=== PATIENT | male | born 1960 | race Caucasian/White ===

== ENCOUNTER → 2016-05-19 | Outpatient (CLI) | payer OTHER ==
[~2016-05-19] MED LIST: ASPIRIN LO-DOSE81 MG PO; BAYER CHILD81 MG PO; CARDIZEM CD (T120 MG PO; IMDUR30 MG PO; LEVEMIR FL100 UNIT/1 SUB-Q; LIPITOR20 M1 PO; LOPRESSOR50 MG PO; MS CONTIN60 MG PO; NITROSTAT0.4 MG SL; NUCYNTA50 MG PO; RANEXA ER500 MG PO; ZOFRAN4 MG PO
== END | disposition disaster alternative care site (69) ==
LOC: GAMB 05:45
DX: R07.9 Chest pain, unspecified (principal); M79.602 Pain in left arm; R11.2 Nausea with vomiting, unspecified; Z79.899 Other long term (current) drug therapy; Z88.1 Allergy status to other antibiotic agents
CPT/HCPCS: A0425; A0427; J2405

== ENCOUNTER 2016-05-23 20:17 | Inpatient (IN) | payer OTHER ==
[~2016-05-23] VITALS: Ht 175.3 cm; Wt 108.3 kg
--- NOTE | ~2016-05-23 | DS ---
PATIENT'S NAME: CHAKA SANDOVAL [facility] AGE: 55 Y [address] ROOM: [place] [address] LOCATION: GPCU ADMIT DATE: 05/23/2016 Discharge Summary DISCHARGE DATE: 05/26/2016 FAMILY PHYSICIAN: Jerson Bruno MD ATTENDING PHYSICIAN: Dawood Raygoza DISCHARGE DIAGNOSES: 1. Chest pain secondary to Prinzmetal angina. 2. Nonsustained ventricular tachycardia. PAST MEDICAL HISTORY: 1. Prinzmetal angina causing chronic chest pain. 2. Diabetes type 2. 3. Opioid dependence. 4. Anxiety disorder. 5. Depression. 6. Multiple cardiac catheterizations in the past without intervention due to a finding consistent with Prinzmetal angina and a mid LAD bridge. DISCHARGE MEDICATIONS: 1. Morphine sulfate 60 mg p.o. t.i.d. 2. Nitroglycerin sublingual 0.4 mg every 5 minutes p.r.n. for chest pain. 3. Insulin Levemir 30 units subcutaneous every morning. 4. Tapentadol 50 mg p.o. t.i.d. p.r.n. for pain. 5. Cardizem CD 120 mg p.o. daily. 6. Zofran 4 mg every 6 hours p.r.n. for nausea and vomiting. 7. Lopressor 50 mg p.o. b.i.d. 8. Aspirin 81 mg p.o. daily. 9. Lipitor 20 mg p.o. daily. 10. Ranexa extended release 500 mg p.o. b.i.d. 11. Imdur extended release 90 mg p.o. daily. FOLLOWUP: The patient is instructed to follow with the primary member of congress, Dr. Haq on June 15, 2016; also with the primary care physician within 1 week. The patient is also instructed if the chest pain recurs, come back right away to the emergency room. INVESTIGATION DURING THE HOSPITALIZATION: Chest x-ray on admission showed normal chest x-ray. Transthoracic echo on May 24, 2016, showed normal left ventricular contractility. Normal left ventricular and right ventricular size and systolic function. The estimated left ventricular ejection fraction is 60% to 65%. Mild concentric left ventricular hypertrophy. Diastolic flow assessment reveals normal diastolic left ventricular function. No significant valvular PATIENT'S NAME: CHAKA SANDOVAL [facility] AGE: 55 Y [address] ROOM: G6309 [place], [place] [address] [facility] ADMIT DATE: 05/23/2016 Discharge Summary DISCHARGE DATE: 05/26/2016 FAMILY PHYSICIAN: Jerson Bruno MD ATTENDING PHYSICIAN: Dawood Raygoza. On May 25, 2016, the patient had a nuclear stress test and showed the overall quality of the study was good. Left ventricular cavity is noted to be normal on the stress and normal on the rest images. There is no evidence of abnormal lung activity. The right ventricle is not visualized and cannot be assessed. Impression is that the submaximal exercise nuclear stress test, the EKG portion of the exercise stress test is clinically negative for ischemia by diagnostic criteria. The patient achieved 8.5 METS. The patient only reached 73% of the maximal heart rate. Myocardial perfusion imaging is essentially normal. Overall, left ventricular systolic function was normal without regional wall motion abnormalities. The calculated left ventricular ejection fraction is 70%. LABORATORY DATA: Show CPK, a total of 6 sets, all within normal limits. Troponin 6 sets all within normal limits as well. CK-MB also within normal limits, all 6 sets. On admission, white blood cell 9.7, hemoglobin 15.7, hematocrit 45.8, MCV 79.5, platelets 267. Glucose 224, BUN 24, creatinine 1.0, sodium 135, potassium 3.5, was replaced, and 2 days after on May 25, 2016, was 4.0. Chloride, on admission, 102; CO2 of 22; calcium 8.6. Total protein 7.6, albumin 3.6. AST 9, ALT 16, alkaline phosphatase 67, total bilirubin 0.5. Magnesium 2.1. Anion gap 14.5. GFR more than 60. INR 1.0, PTT 25. EKG on admission on May 23, 2016, showed sinus rhythm, heart rate of 85, normal VT, normal QRS, normal QTc duration and interval without a finding to suggest acute ischemia. Repeat EKG on May 26, 2016, on discharge still showed sinus rhythm without any acute ischemic changes. Heart rate 63, VT, QRS, and QTc all within normal limits. CONSULTANTS INVOLVED IN CARE: 1. Cardiology, Dr. Haq. 2. Hospitalist team. ADMISSION HISTORY AND HISTORY COURSE: For the complete history and physical, refer to history and physical dictated on the day of admission by Dr. Davenport. In summary, this is a 55-year-old male with recurrent chest pain secondary to Prinzmetal angina and multiple cardiac catheterizations in the past without any interventions given that his chest pain is secondary to Prinzmetal angina. At this time, the patient came back here again with recurrent substernal chest pain without much relief after taking nitroglycerin sublingual or nitroglycerin drip in the emergency room. The patient was admitted for the diagnoses mentioned in the discharge diagnoses. 1. Regarding his chest pain secondary to Prinzmetal angina: The patient is PATIENT'S NAME: CHAKA SANDOVAL [facility] AGE: 55 Y [address] ROOM: [place] [address] LOCATION: [facility] ADMIT DATE: 05/23/2016 Discharge Summary DISCHARGE DATE: 05/26/2016 FAMILY PHYSICIAN: Jerson Bruno MD ATTENDING PHYSICIAN: Dawood Raygoza well-known to the primary member of congress, Dr. Haq, who has had several cardiac catheterizations done in the past and no interventions were performed given that his recurrent chest pain was secondary to Prinzmetal angina. The patient underwent cardiac enzyme cycling, a total of 6 sets were performed, and all CPK and CK-MB and troponin were all within normal limits. The patient also had a transthoracic echo and also a nuclear stress test also without significant abnormality that did not require repeat cardiac catheterization. Refer to the investigation during the hospitalization section above for details. The patient was followed closely by Cardiology, and the patient's chest pain actually went away during this admission. The patient was started on a new medication which includes Ranexa and Imdur, both extended release. The patient remained chest pain free, therefore, did not require any further testing given that the echo and also the nuclear stress test were unremarkable and did not require further cardiac catheterization evaluation. The patient was cleared by Cardiology to be discharged home on the day of discharge. The patient will be going home with medications mentioned in the discharge medication section. On the day of discharge, the patient had good spirits, vital signs within normal limits, chest pain free, and did not complain of any symptoms. 2. The patient also had a few beats of nonsustained ventricular tachycardia that patient was totally asymptomatic, and the patient was on Lopressor and did not have any more recurrence of the nonsustained ventricular tachycardia. 3. For patient's diabetes type 2: The patient was continued with the diabetic medication regimen and was under good control. The patient will be discharged home with the same diabetic medication regimen. 4. Regarding his hypertension: Was also well controlled and will be continued on the same medication that he was taking before. Time spent on the day of discharge, 25 minutes including counseling, and addressing all the questions and concerns that the patient had and then going over the followup plan with the patient and the nurses. MD ROBERTO TINOCO/shaggy /[id number] d: 06/07/16 2204 t: 06/28/16 1046, DISCHARGE SUMMARY
--- NOTE | ~2016-05-23 | ECHO ---
Transthoracic Echocardiography Report (TTE) Demographics Patient Name CHAKA SANDOVAL Date of Study 05/24/2016 Patient Number [id number] Visit Number [id number] Date of 1960 Room Number G6309 Gender Male Number Age 55 year(s) Referring Kiana Arthur MD Automatic Silk Screen Printer Diomedes Lovell RVT, Physician Issac Arrington Physician Interpreting Renato Pino Shield Cleaner Physician MD Supervising Ordering Carlene Arrington APRN, MD/MLP Physician Nurse Stress Guest Relations Coordinator Conclusions Contractility Score Summary Normal Left Ventricular contractility was noted. Summary Normal LV/RV size and systolic function. The estimated left ventricular ejection fraction is 60-65%. Mild concentric left ventricular hypertrophy. Diastolic flow assessment reveals normal diastolic LV function . No significant valvular abnormalities. Procedure Type of Study TTE procedure:2D Echocardiogram, M-Mode, Doppler , Color Doppler. Procedure Date Date: 05/24/2016 Start: 12:52 PM Study Location: Inpatient Portable Technical Quality: Adequate visualization Indications:Ventricular tachycardia and Chest pain. Appropriate Use Criteria: 9 Patient Status: Routine HR: 68 bpm BP: 137/80 mmHg Allergies - Other:(sulfa, ceftin). M-Mode/2D Measurements LV Diastolic Dimension: 4.27 cm LV Systolic Dimension: 2.75 cm LV Septum Diastolic: 1.28 cm LV PW Diastolic: 1.16 cm AO Root Dimension: 3.3 cm Cardiac Output: 3.99 l/min AV Cusp Separation: 1.7 cm RV Diastolic Dimension: 2.9 cm LA volume: 43 ml LVOT: 2 cm RV Base: 2.86 cm LVOT VTI: 18.7 cm RV Mid: 2.36 cm LV Stroke volume: 58.72 ml TAPSE: 2.52 cm TDI-S': 14.6 cm/s Doppler Measurements AV Peak Velocity: 1.23 m/s MV Peak E-Wave: 0.74 m/s AV Peak Gradient: 6.05 mmHg MV Peak A-Wave: 0.57 m/s AV Mean Gradient: 3 mmHg MV E/A Ratio: 1.28 LVOT Peak Velocity: 0.94 m/s MV P1/2t: 79 msec PV Peak Velocity: 0.82 m/s E' Septal Velocity: 0.06 m/s PV Peak Gradient: 2.69 mmHg E' Lateral Velocity: 0.08 m/s A' Septal Velocity: 0.13 m/s A' Lateral Velocity: 0.13 m/s Findings Left Ventricle The left ventricle is normal in size . Mild concentric left ventricular hypertrophy. Diastolic flow assessment reveals normal diastolic LV function . Right Ventricle Normal right ventricle structure and function. Left Atrium Normal left atrial size. Right Atrium Normal right atrial size. IVC measures 1.89 cm with inspiratory collapse. Mitral Valve Mild mitral annular calcification. Aortic Valve The aortic valve is mildly sclerotic. Tricuspid Valve Normal tricuspid valve structure and function. Trivial tricuspid regurgitation by color Doppler. Pulmonic Valve The pulmonic valve is not well visualized. Pericardial Effusion No evidence of pericardial effusion. Miscellaneous Visualized portions of the aortic root and ascending aorta appear normal in size. Pleural Effusion No evidence of pleural effusion. Contractility Score LV regional wall motion:(0-Non visualized 1-Normal 2-Hypokinesis 3-Akinesis 4-Dyskinesis 5-Aneurysm) Signature dtt: ALIE CHRISTOPHER dtd: 05/24/16 1252 Physician Self Edit
--- NOTE | ~2016-05-23 | ESTC ---
Cardiac Perfusion Imaging Demographics Patient Name LORI Ruby Gender Male Patient Number [id number] Race Visit Number [id number] [place] [id number] Room Number G6309 Accession Number [id number] Height 69 inches Date of 1960 Weight 236 pounds Interpreting Renato Pino Date of study 05/25/2016 Physician Supervising /DELMI COBOS Technologist Roxana Alonso Ordering Physician Carlene Arrington Stress Sylwia Sexton APRN appliance repair technician [facility] Stress ECG Reading Carlene Alejandra APRN Nurse Hazel Cheek RN Physician The procedure was explained in detail to the patient. Risks, complications and alternative treatments were reviewed. Written consent was obtained. Medications Reviewed with Patient prior to Procedure. Procedure Procedure Type: Nuclear Stress Test:Exercise, Cardiolite Stress Test Procedure Start time: 05/25/2016 07:15 Conclusions Summary Perfusion Images: The overall quality of the study is good. Left ventricular cavity is noted to be normal on the stress and normal on the rest images. There is no evidence of abnormal lung activity. The right ventricle is not visualized an cannot be assessed. Impression Submaximal exercise nuclear stress test. ECG portion of exercise stress test is clinically negative for ischemia by diagnostic criteria. Acheived 8.5 METS Patient only reached 73% of MPHR. Myocardial perfusion imaging is essentially normal. Overall left ventricular systolic function was normal without regional wall motion abnormalities. Calculated LVEF is 70% and TID ratio is 1.08. There are no previous studies for comparison. Stress Protocols Resting ECG Sinus rhythm Pre-stress physical exam: Patient assessed by Diamond ISAAC prior to testing. Peak HR:122 bpm HR response: Appropriate Peak BP:154/90 mmHg BP response: Appropriate Predicted HR: 166 bpm HR/BP product:82657 % of predicted HR: 73 Reason for termination:Chest pain ECG Findings No ECG changes suggestive of ischemia. Arrhythmias No rhythm abnormality. Symptoms Chest pain. - Familiar to previous chest pains. Complications Procedure complication: None. Stress Interpretation Performed Bustos Treadmill through 3 stages, walking for a total of 7.5 minutes. Test ended due to chest pain after 1 minute of walking after nuclear injection. Appropriate hemodynamic response to exercise. No significant ST-T wave changes with exercise. EKG portion is negative for ischemia by diagnostic criteria. SUBMAXIMAL STRESS TEST, PT REACHED ONLY 73% OF MPHR. Imaging Results Applied corrections - Motion correction applied High risk findings Summed scores - Summed stress score: 3 - Summed rest score: 1 - Summed difference score: 2 Stress ejection Ejection fraction:70 % EDV :90 ml ESV :27 ml Stroke volume :63 ml LV mass :121 gr Imaging Protocols Rest Stress Isotope:Tc99m Sestamibi IV Isotope: Tc99m Sestamibi IV Isotope dose:14.1 mCi Isotope dose:43.8 mCi Date:05/25/2016 07:45 Date:05/25/2016 10:27 Technique: SPECT Technique: Gated Supine SPECT Supine IV remains in place after procedure. Scan Time:15-30 minutes post injection Medical History Admission Data Admission date: 05/23/2016 Admission Time: 22:35 Hospital Status: Inpatient. Signatures dtt: ALIE CHRISTOPHER dtd: 05/25/16 0715 Physician Self Edit
--- NOTE | ~2016-05-23 | CON ---
PATIENT'S NAME: CHAKA SANDOVAL [facility] AGE: 55 Y [address] ROOM: [place] [address] LOCATION: GPCU ADMIT DATE: 05/23/2016 Consultation DISCHARGE DATE: FAMILY PHYSICIAN: JENN KENNY MD ATTENDING PHYSICIAN: SADAF CHAVEZ V DATE OF CONSULTATION: 05/24/2016 REFERRING PHYSICIAN: ODETTE CHRISTOPHER MD REASON FOR CARDIOLOGY CONSULT: Chest pain. HISTORY OF PRESENT ILLNESS: This is a 55-year-old male, familiar to [facility] and was last seen by us on 04/19/2016. He presents to this admission with chest pain, which is very familiar to him in quality and location. He has a well known documented history of Prinzmetal angina as well as LAD bridge. He presents to this hospitalization with a similar chest pain as well as nausea and vomiting and dizziness. Of note of difference with this admission is a new onset of nonsustained ventricular tachycardia while he was in the emergency department. He did self convert himself and had some complaints of palpitations during. He had no complaints of presyncope or worsening chest pain during. He also has no other changes in his health history or new complaints at the time of this consult. He is resting comfortably, but states that his chest pain is still present even with IV nitroglycerin. PAST MEDICAL HISTORY: Unchanged from dictation on 04/19/2016. PAST SURGICAL HISTORY: Unchanged from dictation on 04/19/2016. FAMILY HISTORY: Unchanged from dictation on 04/19/2016. SOCIAL HISTORY: Unchanged from dictation on 04/19/2016. CURRENT MEDICATIONS: 1. Cardizem CD 120 mg p.o. daily. 2. Lipitor 20 mg p.o. daily. 3. Lopressor 50 mg p.o. twice daily. 4. MS Contin 60 mg p.o. 3 times daily. 5. NovoLog subcu on a moderate sliding scale per a.c. and at bedtime Accu- Cheks. PATIENT'S NAME: CHAKA SANDOVAL [facility] AGE: 55 Y [address] ROOM: [place] [address] LOCATION: GPCU ADMIT DATE: 05/23/2016 Consultation DISCHARGE DATE: FAMILY PHYSICIAN: JENN KENNY MD ATTENDING PHYSICIAN: SADAF CHAVEZ V 6. Aspirin 325 mg p.o. daily. MEDICATION ALLERGIES: 1. Cephalosporins causing hives. 2. Sulfa causing hives. REVIEW OF SYSTEMS: Pertinent positive review of systems noted in the HPI. All other review of systems evaluated and negative. DIAGNOSTICS: CMS evaluation shows sodium of 135, potassium 3.5, BUN of 24, creatinine 1.0, glucose of 224, and magnesium of 2.1. Cardiac enzyme trend so far shows a CPK of 47, then 49, then 42. CK-MB of less than 0.5 x3 values and troponin I of less than 0.04 x3 values. PHYSICAL EXAMINATION: VITAL SIGNS: Temperature 97.8, pulse 67, respirations 14, blood pressure 126/77, O2 saturation 97% on room air. The patient weighs 107.1 kg. SKIN: [place], warm, and dry. EYES: Sclerae are clear. No xanthelasmas. ENT: Oral mucosa is pink and moist. No jugular venous distention. No carotid bruits. CHEST: Respirations are even and unlabored. LUNGS: Clear to auscultation. HEART: Regular rate and rhythm. Normal S1, S2. No murmurs, rubs, or gallops. ABDOMEN: Soft, nontender. MUSCULOSKELETAL: Gait is normal. EXTREMITIES: Peripheral pulses palpable. No clubbing, cyanosis, or edema. PSYCH: Alert and oriented. Mood and affect are appropriate. IMPRESSION AND PLAN: Per Dr. Odette Christopher: 1. Left anterior chest pain. 2. Nonsustained ventricular tachycardia. 3. History of Prinzmetal angina and LAD bridging. 4. Hypertension. 5. Hyperlipidemia. 6. Diabetes mellitus. The patient had a stress test on 04/10, which showed no ischemia and left ventricular ejection fraction of 75%. Dr. Odette Christopher reviewed his previous angiography, which showed severe mid LAD spasm. Did show some responsiveness with nitroglycerin on angio, so we will plan to start him on Imdur 90 mg p.o. daily with the first dose being off the nitroglycerin drip is PATIENT'S NAME: CHAKA SANDOVAL [facility] AGE: 55 Y [address] ROOM: [address] [address] [facility] AD[facility] DATE: 05/23/2016 Consultation DISCHARGE DATE: FAMILY PHYSICIAN: JENN KENNY MD ATTENDING PHYSICIAN: SADAF CHAVEZ. We will change his aspirin to an 81 mg enteric-coated dose. Due to his NSVT, we will continue to repeat echocardiogram to fully evaluate ejection fraction as well as look for wall motion valvular abnormalities. We will also proceed with a treadmill nuclear stress test to fully evaluate myocardial perfusion imaging. We will continue to monitor, evaluate, and treat as appropriate. Thank you for this consult. Thank for allowing [facility] to interact in the care of this patient. BROOKLYN SHIELDS APRN FOR MD PADMAJA ALCALA/shaggy /[id number] d: 05/24/16 2317 t: 05/30/16 1734, CONSULTATION REPORT
--- NOTE | ~2016-05-23 | ER ---
PATIENT'S NAME: CHAKA SANDOVAL [facility] AGE: 55 Y [address] ROOM: [address] [address] [facility] ADMIT DATE: 05/23/2016 ER/Outpatient Report DISCHARGE DATE: FAMILY PHYSICIAN: PHYSICIAN, UNKNOWN ATTENDING PHYSICIAN: SADAF CHAVEZ V Time of Arrival: Admission date and time documented on the medical record. Time of Evaluation: I saw the patient at 2030 hours. CHIEF COMPLAINT: Left anterior chest pain and pressure. HISTORY OF PRESENT ILLNESS: This patient is a 55-year-old male, who comes in with left anterior chest pain and pressure. Brought in by paramedics via ambulance for evaluation. The patient states that the pain started about 2 hours prior to admission to the emergency department. He was sitting, watching TV when it started. He has had nausea with 2 episodes of vomiting. He has generalized weakness. He states that he got diaphoretic, although he is not diaphoretic on arrival here to the emergency department. Also states that he was short of breath. The patient does have a long history of chest pain; has been in the emergency department multiple times. Has a history of nonobstructive coronary artery disease, Prinzmetal angina, and mid left anterior descending bridge. The patient usually comes in, gets nitroglycerin and resolves his pain. The last time he was here, he got up to about 30 mcg of nitroglycerin before his pain went away. He has been up into 50, 70 range, even up into 100 mcg of nitroglycerin before his pain goes away. The patient has had multiple cardiac catheterizations. Does have insulin-dependent diabetes mellitus type 2 along with hypertension and dyslipidemia. No recent cold, coughs, flus, fever, chills, or sweats. No fall or trauma. No syncope or near syncope. No headache or eyes, ears, nose, throat, neck, or spine pain. No abdominal pain. No diarrhea. No urinary symptoms. No joint or muscle swelling, redness, or pain. No skin eruptions or rash. No history of neuro changes or psych issues. HOME MEDICATIONS: See attached medication list. ALLERGIES: SULFA AND CEFTIN. SOCIAL HISTORY: Nonsmoker. Nondrinker. SIGNIFICANT PAST MEDICAL HISTORY: PATIENT'S NAME: CHAKA SANDOVAL [facility] AGE: 55 Y [address] ROOM: [id number] [place], [place] [address] LOCATION: [facility]U ADMIT DATE: 05/23/2016 ER/Outpatient Report DISCHARGE DATE: FAMILY PHYSICIAN: PHYSICIAN, UNKNOWN ATTENDING PHYSICIAN: SADAF CHAVEZ V Atherosclerotic ischemic heart disease with nonobstructive coronary artery disease, Prinzmetal angina, mid left anterior descending coronary artery bridge, insulin-dependent diabetes mellitus type 2, hypertension, and dyslipidemia. OPERATIONS: Appendectomy, cardiac catheterizations, cervical neck fusion, and septoplasty. REVIEW OF SYSTEMS: All systems reviewed by me are negative with the exception of those discussed in the history of present illness. PHYSICAL EXAMINATION: VITAL SIGNS: Temperature 98, pulse 80 and regular, respirations 16, blood pressure 174/100, and O2 saturation on room air was 99%. Robel Coma Scale was 15. HEAD: Normocephalic. EYES: Extraocular muscles intact. PERRL. EARS, NOSE, AND THROAT: Clear. Mucous membranes moist. NECK: No nuchal rigidity. No thyromegaly or cervical adenopathy. No carotid bruits. SPINE: Negative. LUNGS: Clear. Good air flow. No rales, rhonchi, or wheezes. HEART: Regular. Pulses palpable. No chest wall or ribcage pain to palpation. ABDOMEN: Soft, nondistended, nontender. Good bowel tones. No organomegaly or abnormal mass palpable. EXTREMITIES: No peripheral edema, cyanosis, or deformity. NEUROVASCULAR: Intact. SKIN: Clear. No skin eruptions or rash. LABORATORY DATA AND X-RAYS: EKG showed sinus rhythm. No acute ST elevation, ischemic change, or arrhythmia. Chest x-ray showed no acute infiltrate or changes. We will review x-ray with the radiologist. Laboratory: CMS was normal except for a slightly low potassium of 3.5 and elevated glucose 224. Magnesium was 2.1. CPK was 47. [id number]-[id number] cardiac enzymes were normal with a CK-MB of less than 0.5 and a troponin of less than 0.04. White count was 9700, 72 segs, 22 lymphs, 5 monos, 1 eo, 1 baso; hemoglobin was 15.7; hematocrit 45.8; platelet count was 267,000. PTT was 25, pro-time was 10.7, INR 1.0. EMERGENCY DEPARTMENT COURSE: Did start the patient on IV nitroglycerin ip. Got him up to 50 mcg. Still having some chest pain. Did give him Ativan 1 mg IV in the emergency room. The patient had an episode where he went into V-tach. Spontaneously converted PATIENT'S NAME: CHAKA SANDOVAL [facility] AGE: 55 Y [address] ROOM: [place] [address] [facility] ADMIT DATE: 05/23/2016 ER/Outpatient Report DISCHARGE DATE: FAMILY PHYSICIAN: PHYSICIAN, UNKNOWN ATTENDING PHYSICIAN: SADAF CHAVEZ V to a sinus rhythm. We did give him 150 mg of amiodarone IV here in the emergency department. Did discuss the patient with Dr. Chavez, hospitalist. IMPRESSION: 1. Left anterior chest pain and pressure. The patient has a history of nonobstructive coronary artery disease, Prinzmetal angina, and does have a mid anterior left anterior descending coronary artery bridge. The patient also went into an arrhythmia, ventricular tachycardia for a brief period of time with spontaneous conversion. Did cover the patient with amiodarone 150 mg IV. The patient is on nitroglycerin drip and did get Ativan. 2. Insulin-dependent diabetes mellitus type 2. 3. Hypertension. 4. Dyslipidemia. PLAN: The patient will be admitted to PCU telemetry for further evaluation and treatment. The patient will be under the care of Dr. Chavez, hospitalist, on admission. Discussion ensued with the patient concerning my findings and recommendation. He understands. MD JOSE RAFAEL MORTON/modl /[id number] d: 05/24/16 0550 t: 05/26/16 181, OUTPATIENT REPORT
--- NOTE | ~2016-05-23 | HP ---
PATIENT'S NAME: CHAKA SANDOVAL [facility] AGE: 55 Y [address] ROOM: [place] [id number] LOCATION: [facility] ADMIT DATE: 05/23/2016 History & Physical DISCHARGE DATE: FAMILY PHYSICIAN: JENN KENNY MD ATTENDING PHYSICIAN: SADAF CHAVEZ V DATE OF SERVICE: CHIEF COMPLAINT: Chest pain. 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 The patient presented to the ER today with complaints of 10/10 substernal chest pressure which started suddenly. It has not been relieved with any amount of nitroglycerin that he took at home or a nitroglycerin drip which was placed in the ER. When questioned about his use of MS Contin, he reports that he was not able to keep down his regular dose of 60 mg MS Contin on two separate occasions today. He thinks that he is going to opioid withdrawal. At this point, the only thing he wants his morphine. He denies any shortness of breath, but does admit to several episodes of nausea and vomiting. REVIEW OF SYSTEMS: All systems have been reviewed and negative aside for pertinent positives as mentioned above. PAST MEDICAL HISTORY: 1. Prinzmetal's angina, chronic chest pain, myocardial bridging, cardiac catheterizations x9 with nonobstructive diffuse coronary artery disease. 2. Insulin-dependent diabetes. 3. Significant opioid dependency. 4. Multiple social stressors. 5. Anxiety and depression. SOCIAL HISTORY: The patient denies having ever smoked and denies any other active toxic habits. FAMILY HISTORY: PATIENT'S NAME: CHAKA SANDOVAL [facility] AGE: 55 Y [address] ROOM: [place] [id number] LOCATION: [facility] ADMIT DATE: 05/23/2016 History & Physical DISCHARGE DATE: FAMILY PHYSICIAN: JENN KENNY MD ATTENDING PHYSICIAN: SADAF CHAVEZ V Reviewed and is noncontributory due to known underlying etiology for his presentation. CURRENT MEDICATIONS: 1. Aspirin. 2. Diltiazem. 3. Detemir 30. 4. Metoprolol 50, which the patient did not know he was supposed to be taken. 5. MS Contin 60 mg three times a day. 6. Nitroglycerin as needed. 7. Nucynta 50 mg three times a day as needed. PHYSICAL EXAMINATION: VITAL SIGNS: His heart rate is 100 to 110, blood pressure 130s over 60s, saturating 96% on room air, afebrile, respirations are 16. GENERAL: Appears as a middle-aged male, groaning in bed, but appears quite comfortable once distracted from his complaints. NEUROLOGICAL: Nonfocal. EYES: Reveals pre-existing left eye esodeviation. ENT: Reveals no stridor. LYMPHATIC: Shows no cervical lymphadenopathy. ENDOCRINE: Shows no thyromegaly. LUNGS: Clear to auscultation. HEART: Rate is slightly tachycardic and regular with no appreciable murmurs, gallops, or rubs. There is no jugular venous distention or lower extremity edema. GI: Abdomen soft and nontender. : No costovertebral angle tenderness. VASCULAR: 2+ pedal pulses. MUSCULOSKELETAL: Unremarkable. SKIN: Warm and dry. PSYCHIATRIC: Difficult to perform as the patient is not really cooperating and just wanted morphine. DIAGNOSTIC DATA: Workup done in the ER significant for an EKG which shows normal sinus rhythm at 85 beats per minute with no other abnormalities. An unremarkable basic normal metabolic profile. Two sets of negative cardiac enzymes. Unremarkable CBC. ASSESSMENT AND PLAN: This is a 55-year-old male who will be admitted with, 1. Chest pain related to Prinzmetal's angina/myocardial bridging. At this point, we will continue the patient on nitroglycerin drip. His heart rate is not adequately controlled which could be contributing to his PATIENT'S NAME: CHAKA SANDOVAL [facility] AGE: 55 Y [address] ROOM: [place] [address] [facility] ADMIT DATE: 05/23/2016 History & Physical DISCHARGE DATE: FAMILY PHYSICIAN: JENN KENNY MD ATTENDING PHYSICIAN: SADAF CHAVEZ V worsening chest pain. We will start him on IV beta blockers and monitor his heart rate. I am not sure how much of his symptoms are related to either Prinzmetal's angina or myocardial bridging given his complex opioid and pain history. But nevertheless, we will try and control his chest pain and blood pressure. We will get a cardiology consultation in the morning. 2. Opioid dependency with opioid withdrawal. I will restart the patient on his MS Contin and provide him with antiemetics, so he can keep it down. We will give him moderate doses of intravenous morphine in as little quantity as possible to help him with withdrawal. I think that it would be ibarra for the patient to seek opioid tapering therapy in the near future. 3. Insulin-dependent diabetes. We will put the patient on a sliding scale while he is still nauseous. 4. Additional management will depend on clinical course. Time dedicated to this patient's encounter is 35 minutes. MD FLORENCIO HILL/shaggy /[id number] D: [id number] T: [id number] HISTORY & PHYSICAL
[~2016-05-23 20:17] MED LIST changes: -LIPITOR20 M1 PO; -RANEXA ER500 MG PO
[2016-05-23 20:42] LABS: BASOPHIL % 0.4 %; EOSINOPHIL # 0.1 K/uL (0.0-0.5); EOSINOPHIL % 0.5 %; HEMATOCRIT 45.8 % (37.0-53.0); HEMOGLOBIN 15.7 g/dL (12.0-17.0); IMMATURE GRANULOCYTE # 0.1 K/uL (0.0-0.3); IMMATURE GRANULOCYTE % 0.5 %; LYMPHOCYTE # 2.1 K/uL (0.8-4.0); LYMPHOCYTE % 21.6 %; MCH 27.3 pg (27.0-34.0); MCHC 34.3 gm/dL (32.0-36.5); MCV 79.5 fl (83.0-98.0); MONOCYTE # 0.5 K/uL (0.0-1.0); MONOCYTE % 5.4 %; MPV 8.8 fl (9.4-12.4); NEUTROPHIL % 71.6 %; NRBC % 0 /100WBC (0-0.00); PLATELET COUNT 267 K/uL (150-450); RBC 5.76 M/uL (4.00-6.00); RDW-CV 13.2 % (11.9-14.6); WBC 9.7 K/uL (4.0-11.0)
[2016-05-23 20:52] LABS: PROTIME 10.7 SECONDS (9.6-11.1); PTT 25 SECONDS (25-32)
[2016-05-23 21:02] LABS: ALBUMIN 3.6 gm/dL (3.5-5.0); ALK PHOS 67 IU/L (33-138); ALT 16 IU/L (12-78); ANION GAP 14.5 (10.0-19.0); AST 9 IU/L (10-40); BLOOD UREA NITROGEN 24 mg/dL (6-24); CALCIUM 8.6 mg/dL (8.5-10.5); CHLORIDE 102 mMol/L (96-110); CO2 22 mMol/L (22-32); CPK 47 IU/L (35-332); ESTIMATED GFR (MDRD EQUATION) > 60; MAGNESIUM 2.1 mg/dL (1.3-2.6); POTASSIUM 3.5 mMol/L (3.7-5.1); SODIUM 135 mMol/L (135-145); TOTAL BILIRUBIN 0.5 mg/dL (0.0-1.5); TOTAL PROTEIN 7.6 g/dL (6.0-8.4)
[2016-05-23 22:57] LABS: CPK 49 IU/L (35-332)
--- NOTE | 2016-05-24 00:34 | NUR ---
PATIENT WAS AT HOME STARTED HAVING 10/10 CHEST PAIN. EMS CALLED AND BROUGHT INTO ER. PATIENT STATES HE ALSO HAD NAUSEA WITH VOMITTINGx2. CURRENTLY ON 60MCG/MIN OF NITRO. STILL WITH 10/10 CHEST PAIN/PRESSURE DIRECTLY ON THE LEFT CHEST.
--- NOTE | 2016-05-24 04:40 | NUR ---
A/O. HR 60-100s. SBP 110-130s. ROOM AIR. 10/10 CHEST PAIN ON ARRIVAL. 6MG IV MORPHINE GIVEN 1 TIME DOSE. PATIENT GIVEN HOME DOSE OF MS PO WELL. ZOFRAN ALSO GIVENx1. NITRO CURRENTLY RUNNING AT 5MCG/MIN. PATIENT APPEARS TO BE RESTING WITH EYES CLOSE AT TIME OF THIS NOTE. NORMAL SALINE RUNNING AT 50ML/HR. NO VOIDS OR BMS OF THIS NOTE. AFEBRILE.
[2016-05-24 06:23] LABS: CPK 42 IU/L (35-332)
--- NOTE | 2016-05-24 11:25 | NUR ---
Introduced self and role of care management to patient. He lives in [place] by himself. He states that he is able to do all his own ADL's. He states that he has family and friends that are available to assist as needed. He plans on returning home on discharge. He denies any needs at this time. Will continue to follow.
--- NOTE | 2016-05-24 17:35 | NUR ---
A/O X 3. Pt is independent in room. Walks frequently in halls but needs supervision because he will leave the floor to go to [employer]. Scheduled MS Contin w/ relief. Cardiac enzymes negative. Echo today. Treadmill stress test in the AM. D/C'd nitro and started on PO Imdur, K+, Lipitor. NPO at midnight. Hold nitrates and beta blockers in the AM.
[2016-05-24 18:20] LABS: CPK 44 IU/L (35-332)
[2016-05-25 00:15] LABS: CPK 42 IU/L (35-332)
--- NOTE | 2016-05-25 05:08 | NUR ---
Patient A/Ox3. VSS on RA. Independent in room and samayoa. Chest pain off and on thought out shift and relief with nycenta. Lungs clear. Bowel sounds present. IV saline locked. Npo for stress test in am.
[2016-05-25 07:05] LABS: BLOOD UREA NITROGEN 24 mg/dL (6-24); CHLORIDE 104 mMol/L (96-110); CO2 25 mMol/L (22-32); CREATININE 0.9 mg/dL (0.6-1.3); ESTIMATED GFR (MDRD EQUATION) > 60; MAGNESIUM 2.2 mg/dL (1.3-2.6); SODIUM 137 mMol/L (135-145)
--- NOTE | 2016-05-25 16:27 | NUR ---
A&O. SBA. SBP 110'S-120'S. HR 50'S-80'S. RA. AFEBRILE. C/O CHEST PAIN CONSTANT 4-11/02. MS JUAN JOSÉ SCHEDULED. LS CLEAR. BS ACTIVE. NO BM TODAY. VOIDS WELL. CSM WNL. STRESS TODAY. L HAND SL . ACHS WITH COVERAGE.
--- NOTE | 2016-05-26 04:37 | NUR ---
Significant Event: Patient alert/oriented x3. Vital signs stable. On room air. Scheduled MS Contin given last night with HS meds. Nucynta given x1 at 0350. Patient ambulated several times in hallways prior to bedtime. Up independently. Follow up: EKG this AM.
[2016-05-26] MEDS ORDERED: LIPITOR20 M1 PO (13:39)
[2016-05-26] MEDS ORDERED: RANEXA ER500 MG PO (13:40)
[2016-05-26] MEDS ORDERED: IMDUR30 MG PO (13:42)
--- NOTE | 2016-05-26 14:57 | NUR ---
A&O. CONTINUES CHEST PAIN "BETTER TODAY AND WANTS TO GO HOME". VSS. IND. SCHEDULED MS JUAN JOSÉ TAKES CARE OF PAIN. LS CLEAR. VOIDS WELL. BM TODAY. CSM WNL. NO SKIN ISSUES. EKG THIS AM GOOD. LABS GOOD DC HOME AT 1435
== END 2016-05-26 14:40 | disposition disaster alternative care site (69) | DRG 303 ==
LOC: GMED 20:17 → GPCU 22:34
PROVIDERS: Emergency Medicine; Hospitalist; Nurse Practitioner; ADMIT Internal Medicine
DX: I25.111 Atherosclerotic heart disease of native coronary artery with angina pectoris with documented spasm (principal); I47.2 Ventricular tachycardia; Q24.5 Malformation of coronary vessels; F11.23 Opioid dependence with withdrawal; I10 Essential (primary) hypertension; E78.5 Hyperlipidemia, unspecified; E11.9 Type 2 diabetes mellitus without complications; Z98.1 Arthrodesis status; Z79.4 Long term (current) use of insulin; Z91.14 Patient's other noncompliance with medication regimen; Z79.82 Long term (current) use of aspirin
CPT/HCPCS: A9270; A9500; J0282; J0461; J2060; J2270; J2405; J7030

== ENCOUNTER → 2016-05-23 | Outpatient (CLI) | payer OTHER | END | disposition disaster alternative care site (69) | LOC: GAMB 19:54 | DX: R07.9 Chest pain, unspecified (principal); R40.20 Unspecified coma; Z79.891 Long term (current) use of opiate analgesic; Z79.899 Other long term (current) drug therapy; Z88.1 Allergy status to other antibiotic agents | CPT/HCPCS: A0422; A0425; A0427 ==

== ENCOUNTER 2016-11-04 23:01 | Inpatient (IN) | payer OTHER ==
[~2016-11-04] VITALS: Ht 175.3 cm; Wt 109.4 kg
--- NOTE | ~2016-11-04 | DS ---
PATIENT'S NAME: CHAKA FUENTES [facility] AGE: 56 Y [address] ROOM: [place] [address] LOCATION: [facility]U ADMIT DATE: 11/05/2016 Discharge Summary DISCHARGE DATE: 11/05/2016 FAMILY PHYSICIAN: Jerson Bruno MD ATTENDING PHYSICIAN: Fabiola Cassidy REASON FOR ADMISSION: Chest pain. PRINCIPAL DIAGNOSIS: Orelp-of-qxmcajd chest pain. SECONDARY DIAGNOSES: 1. Prinzmetal's angina. 2. Narcotic dependence. 3. Morbid obesity. 4. Insulin-dependent diabetes mellitus type 2 with hyperglycemia. 5. Acute kidney injury, resolved. 6. Anxiety. 7. Depression. PENDING LABS AND TESTS AT THE TIME OF DISCHARGE: None. MEDICATIONS AND PERTINENT CHANGES: None. CONSULTANTS: None. HOSPITAL COURSE: Mr. Fuentes is a 56-year-old male with extensive history of recurrent chest pain, working diagnosis of Prinzmetal's angina, following 9 prior left heart catheterizations without significant atherosclerotic disease appreciated. He presented to the emergency department with typical left-sided chest pain, which he described as pressure-like with radiation to the left arm with tingling in the 1st three digits of his left hand associated with nausea and decreased appetite. The patient was also found to have an acute kidney injury with a creatinine baseline 0.8 to 1.0 elevated to 1.4 on admission. Initial workup notable for EKG without ischemic changes. Troponins were negative x3 during stay. The patient was treated with his home high-dose chronic narcotics, which included MS Contin 60 mg t.i.d. The patient did note that later in the day of admission, his pain had improved to baseline, and repeat creatinine was found to be 1.1 after gentle IV fluid rehydration in the setting of decreased intake. The patient noted no other symptoms during his stay and with resolution of his pain and extensive recent cardiac workup, was felt safe for discharge on date of admission after approximately 16 hours of inpatient stay. He will follow up with his PCP in approximately 2 weeks. CONDITION ON DATE OF DISCHARGE: Stable. PATIENT'S NAME: CHAKA FUENTES [facility] AGE: 56 Y [address] ROOM: [place] [address] LOCATION: [facility]U ADMIT DATE: 11/05/2016 Discharge Summary DISCHARGE DATE: 11/05/2016 FAMILY PHYSICIAN: Jerson Bruno MD ATTENDING PHYSICIAN: Fabiola Cassidy PERTINENT LABS: As noted above, notable for hemoglobin 15.3, creatinine 1.4, improved to 1.1, glucose in the mid 200 range, with A1c of 10.8. CONDITION ON DATE OF DISCHARGE: Most recent vital signs on the day of discharge notable for absence of fever, pulse in the 70s, and blood pressure 140/80. Exam unremarkable. DISPOSITION: The patient will be discharged home with followup with PCP in 2 weeks. Of concern, the patient has multiple indicators in chart of concerning behavior for drug-seeking and while he endorses that he is seeing a pain specialist, it is concerning that degree to which he is dependent on narcotics of 180 mg of MS Contin per day. This will need to be continuously followed up as an outpatient. Time spent on day of discharge including direct patient care and coordination of discharge activities was 25 minutes. BEVERLY MATSON MD JDS/modl /[id number] d: 11/06/16 0029 t: 11/06/16 0901, DISCHARGE SUMMARY
--- NOTE | ~2016-11-04 | HP ---
PATIENT'S NAME: CHAKA SANDOVAL [facility] AGE: 56 Y [address] ROOM: [place] [address] LOCATION: [facility]PCU ADMIT DATE: 11/05/2016 History & Physical DISCHARGE DATE: FAMILY PHYSICIAN: PHYSICIAN, UNKNOWN ATTENDING PHYSICIAN: CHAN HAIR DATE OF SERVICE: CHIEF COMPLAINT: Chest pain. HISTORY OF PRESENT ILLNESS: A 56-year-old gentleman with a past medical history of Prinzmetal angina as well as myocardial bridging, multiple episodes of chest pain in the past and multiple heart catheterizations without any atherosclerosis, on appropriate medication for Prinzmetal angina including Imdur as well as Ranexa, also has history of medication noncompliance and opiate-seeking behavior, presented to the emergency department with a chest pain, which is located in the right side, pressure like, no radiation, no alleviating, no aggravating factors. No nausea or vomiting along with it. No diaphoresis. Further inquiries revealed does not have any headache. Does not have any trouble with the eyes. No swallowing troubles. No abdominal pain. No constipation or diarrhea. No burning on urination. No extremity swelling, and when questioned, he said that he threw up his MS Contin today, and he is asking for more here. REVIEW OF SYSTEMS: All other systems were reviewed and were negative except what is mentioned in the HPI. PAST MEDICAL HISTORY: Prinzmetal angina with 9 catheterization with nonobstructive disease, coronary artery disease, insulin-dependent diabetes mellitus, significant opioid dependence, anxiety, and depression. SOCIAL HISTORY: Denied that he ever smoked. FAMILY HISTORY: Reviewed and was negative for coronary artery disease. HOME MEDICATIONS: Are being reconciled right now, but the patient is on: 1. Heavy doses of MS Contin, which is 60 mg 3 times daily. 2. Tapentadol 50 mg 3 times daily. 3. Imdur. PATIENT'S NAME: CHAKA SANDOVAL [facility] AGE: 56 Y [address] ROOM: [place] [address] LOCATION: [facility]PCU ADMIT DATE: 11/05/2016 History & Physical DISCHARGE DATE: FAMILY PHYSICIAN: PHYSICIAN, UNKNOWN ATTENDING PHYSICIAN: KHALID,GILES A 4. Detemir 30. 5. Diltiazem 120 daily. 6. Aspirin. 7. Lipitor. 8. Ranexa. 9. He is also on Lopressor 50 mg p.o. b.i.d. PHYSICAL EXAMINATION: VITAL SIGNS: Vitals were reviewed and were negative. GENERAL APPEARANCE: In no acute distress. Appears over-sedated on his narcotic medications. HEENT: Head: Atraumatic, normocephalic. Eyes: Nonicteric. No pallor. Oropharynx: Moist mucous membranes. CARDIOVASCULAR: S1, S2. No murmurs, gallops, or rubs. LUNGS: Clear to auscultation bilaterally. ABDOMEN: Soft, nontender, nondistended. Bowel sounds are present. EXTREMITIES: No clubbing, cyanosis, or edema. PSYCH: Normal affect, mood, and speech. MUSCULOSKELETAL: No muscle tenderness or joint swelling noted. SKIN: Warm. No blemishes, rashes, or dryness noted. ENDOCRINE: No thyromegaly or myxedema noted. DIAGNOSTIC DATA: Done in the ER was unremarkable including an EKG and basic lab work including CBC and troponins. His BMP was unremarkable for creatinine of 1.4. ASSESSMENT AND PLAN: 1. Chest pain. 2. Prinzmetal angina. 3. Acute kidney injury. 4. Insulin-dependent diabetes mellitus. 5. Left anterior descending myocardial bridging. 6. Opioid dependency with opiate-seeking behavior. PLAN: We are going to admit this patient. Continue nitroglycerin. Continue to monitor troponins. I have asked him on multiple times about his morphine, and he said that he said that he has threw up his morphine, and going into the medical chart it appears that he has used the same story over and over again that he threw up his morphine and once more right now. He is on heavy doses of morphine and Tapentadol, and he told me that initially he was put on these medications by who is a Assistant Professor Nurse Education here and now he sees Dr. Paula, the pain doctor. We need to obtain medical record from Dr. Paula' office to see the justification for such heavy doses of opioids. LJ will be managed by the IV fluids and monitoring of the creatinine. All his home PATIENT'S NAME: CHAKA SANDOVAL [facility] AGE: 56 Y [address] ROOM: [address] [address] LOCATION: [facility] ADMIT DATE: 11/05/2016 History & Physical DISCHARGE DATE: FAMILY PHYSICIAN: PHYSICIAN, UNKNOWN ATTENDING PHYSICIAN: CHAN HAIR medications will be restarted. We will try to manage his chest pain with nitroglycerin at this point. We will give his home dose of morphine sulfate in the morning. In the interim, we will try to give mg IM x1 and can be repeated. We may also give 2-3 mg of morphine IV in the interim monitoring. MD ARLYN NUNEZ/shaggy /[id number] D: [id number] T: [id number] HISTORY & PHYSICAL
--- NOTE | ~2016-11-04 | ER ---
PATIENT'S NAME: CHAKA SANDOVAL [facility] AGE: 56 Y [address] ROOM: [place] [address] LOCATION: GPCU ADMIT DATE: 11/05/2016 ER/Outpatient Report DISCHARGE DATE: FAMILY PHYSICIAN: PHYSICIAN, UNKNOWN ATTENDING PHYSICIAN: CHAN CASSIDY Admission date and time documented in the medical record. I saw the patient at 2315 hours. CHIEF COMPLAINT: Left anterior chest pain. HISTORY OF PRESENT ILLNESS: The patient is a 56-year-old male who comes in with left anterior chest pain with accompanying nausea and vomiting. No shortness of breath, diaphoresis, lightheadedness, dizziness, syncope, or near syncope. No headache, eyes, ears, nose, throat, neck, or spine pain. No fall or trauma. No recent colds, coughs, flus, fever, chills, or sweats. The patient's pain radiates to his left shoulder down his left arm. No abdominal pain. Does have nausea and vomiting. No diarrhea. No urinary complaints. No joint or muscle swelling, redness, or pain. No skin eruptions or rash. Does have insulin-dependent diabetes mellitus type 2. Has a history of coronary artery disease with Prinzmetal angina and a mid left anterior descending coronary artery bridge. He also has dyslipidemia and hypertension. He has been having pain off and on for a number of days, but this pain just would not go away, so he presented to the emergency room for evaluation. HOME MEDICATIONS: See attached medication list. ALLERGIES: SULFA AND CEFTIN. SOCIAL HISTORY: Nonsmoker and nondrinker. SIGNIFICANT PAST MEDICAL HISTORY: Atherosclerotic ischemic heart disease with coronary artery disease, Prinzmetal angina with left anterior descending coronary artery bridge, insulin-dependent diabetes mellitus type 2, hypertension, and dyslipidemia. OPERATIONS: Appendectomy, cardiac catheterization, cervical neck fusion, and septoplasty. REVIEW OF SYSTEMS: PATIENT'S NAME: CHAKA SANDOVAL [facility] AGE: 56 Y [address] ROOM: [place] [address] LOCATION: GPCU ADMIT DATE: 11/05/2016 ER/Outpatient Report DISCHARGE DATE: FAMILY PHYSICIAN: PHYSICIAN, UNKNOWN ATTENDING PHYSICIAN: KHALID,GILES A All systems reviewed by me are negative with the exception of those discussed in the history of present illness. PHYSICAL EXAMINATION: VITAL SIGNS: Pulse 90 and regular, respirations 16, blood pressure 163/105, and O2 saturation on room air is 97%. HEAD: Normocephalic. EYES, EARS, NOSE, THROAT: Clear. Mucous membranes moist. NECK: Negative. SPINE: Negative. LUNGS: Clear. Good air flow. No rales, rhonchi, or wheezes. HEART: Regular. Pulses are palpable. No pain to palpation of the chest wall. ABDOMEN: Mildly obese, soft, nondistended, and nontender. Good bowel tones. No organomegaly or abnormal masses palpable. EXTREMITIES: Intact. NEUROVASCULAR: Intact. SKIN: Clear. No skin eruptions or rash. DIAGNOSTIC DATA: EKG showed sinus rhythm. No acute ST elevation, ischemic changes, or arrhythmia. Did have some old anterior changes. Chest x-ray showed no acute infiltrate or changes. We will review x-ray with the radiologist. LABORATORY DATA: CMS was normal except for a slight low sodium of 134, slightly elevated creatinine of 1.4, low GFR of 56, blood sugar was 335, magnesium was 2, CPK was 95, point of care cardiac enzymes were normal. White count was 8900, 59 segs, 33 lymphs, 6 monos, 1 eo, 1 baso, hemoglobin was 15.3, hematocrit was 43.9, and platelet count was 213,000. PTT was 25, pro-time was 9.9 with an INR of 0.94. EMERGENCY DEPARTMENT COURSE: The patient got 4 baby aspirin en route on the ambulance that he was brought on to the emergency department for evaluation. Did start an IV normal saline 75 mL an hour, start him on IV nitro drip. We titrated it for chest pain. We got him up to about 30 to 40 mcg. The patient had minimal improvement. IMPRESSION: 1. Left anterior chest pain radiating to the left shoulder down the left arm. The patient has a history of Prinzmetal angina and myocardial bridging. He is not to my knowledge ever had a myocardial infarction, but he has been here multiple times because of his chest pain. 2. Opioid dependence. 3. Insulin-dependent diabetes mellitus type 2. PATIENT'S NAME: CHAKA SANDOVAL [facility] AGE: 56 Y [address] ROOM: [id number] [place], [place] [id number] LOCATION: [facility] ADMIT DATE: 11/05/2016 ER/Outpatient Report DISCHARGE DATE: FAMILY PHYSICIAN: PHYSICIAN, UNKNOWN ATTENDING PHYSICIAN: CHAN CASSIDY 4. Hypertension. 5. Dyslipidemia. PLAN: I did discuss this patient with Dr. Cassidy, hospitalist. Dr. Cassidy did come to the emergency room to evaluate the patient. We will admit the patient to the hospital for further evaluation and treatment. We will continue the IV nitro drip at this time. Discussion ensued with the patient concerning my findings and recommendations, he understands. Accumulated critical care time 30 minutes. MD JOSE RAFAEL MORTON/modl /[id number] d: 11/05/16 0126 t: 11/05/16 0339, OUTPATIENT REPORT
[2016-11-04 23:21] LABS: BASOPHIL # 0.1 K/uL (0.0-0.2); BASOPHIL % 0.8 %; EOSINOPHIL # 0.1 K/uL (0.0-0.5); EOSINOPHIL % 1.1 %; HEMATOCRIT 43.9 % (37.0-53.0); HEMOGLOBIN 15.3 g/dL (12.0-17.0); IMMATURE GRANULOCYTE # 0.1 K/uL (0.0-0.3); IMMATURE GRANULOCYTE % 0.6 %; LYMPHOCYTE % 33.2 %; MCH 28.3 pg (27.0-34.0); MCHC 34.9 gm/dL (32.0-36.5); MCV 81.1 fl (83.0-98.0); MONOCYTE # 0.5 K/uL (0.0-1.0); MONOCYTE % 5.6 %; MPV 8.8 fl (9.4-12.4); NEUTROPHIL # (ANC) 5.2 K/uL (1.4-9.0); NEUTROPHIL % 58.7 %; NRBC % 0 /100WBC (0-0.00); PLATELET COUNT 213 K/uL (150-450); RBC 5.41 M/uL (4.00-6.00); RDW-CV 13.3 % (11.9-14.6); WBC 8.9 K/uL (4.0-11.0)
[2016-11-04 23:31] LABS: INR - (THERAPEUTIC) 0.94 (0.92-1.07); PROTIME 9.9 SECONDS (9.8-11.4); PTT 25 SECONDS (25-32)
[2016-11-04 23:40] LABS: ALBUMIN 3.5 gm/dL (3.5-5.0); ALK PHOS 63 IU/L (33-138); ALT 26 IU/L (12-78); AST 11 IU/L (10-40); BLOOD UREA NITROGEN 24 mg/dL (6-24); CALCIUM 8.5 mg/dL (8.5-10.5); CHLORIDE 102 mMol/L (96-110); CO2 23 mMol/L (22-32); CPK 95 IU/L (35-332); CREATININE 1.4 mg/dL (0.6-1.3); SODIUM 134 mMol/L (135-145); TOTAL BILIRUBIN 0.3 mg/dL (0.0-1.5); TOTAL PROTEIN 7.5 g/dL (6.0-8.4)
[2016-11-05 01:32] LABS: CPK 99 IU/L (35-332)
--- NOTE | 2016-11-05 05:39 | NUR ---
CAME INTO ER VIA AMBULANCE AFTER HAVING CHEST PAIN AT HOME FOR SEVERAL HOURS. STARTED ON NITRO GTT IN ER UP TO 50MCG. UPON ARRIVAL TO PCU PATIENT WAS OFF THE NITRO AND CHEST PAIN FREE. CARDIAC WORKUP HAS BEEN NEGATIVE. WILL CONTINUE TO MONITOR PT FOR CHEST PAIN. ACCU CHECK EVERY 6 HOURS.
[2016-11-05 15:16] LABS: CALCIUM 8.2 mg/dL (8.5-10.5); CREATININE 1.1 mg/dL (0.6-1.3)
--- NOTE | 2016-11-05 17:41 | NUR ---
PT. A/OX3, VSS ON RA. UP AD CRIS IN HALLS. COMPLAINTS OF CHEST PRESSURE ON/OFF THROUGHOUT SHIFT, HIGHEST PAIN LEVEL GOT WAS 8/10, WOULD LAST ABOUT 30-60min. THEN GO AWAY. MS CONTIN GIVEN X2 SCHEDULED DOSES PER HOME MED LIST. IV TO R)HAND REMOVED WITHOUT ANY COMPLICATIONS. DISMISSAL INSTRUCTIONS GONE OVER WITH PATIENT, NO FURTHER QUESTIONS AT THIS TIME. ALL BELONGINGS SENT HOME WITH PATIENT. LAST CREAT. LEVEL WAS 1.1.
== END 2016-11-05 17:40 | disposition disaster alternative care site (69) | DRG 311 ==
LOC: GMED 23:01 → GPCU 11-05 00:47
PROVIDERS: Emergency Medicine; Internal Medicine; ADMIT Internal Medicine
DX: I20.1 Angina pectoris with documented spasm (principal); N17.9 Acute kidney failure, unspecified; F11.20 Opioid dependence, uncomplicated; E66.01 Morbid (severe) obesity due to excess calories; E11.65 Type 2 diabetes mellitus with hyperglycemia; F41.9 Anxiety disorder, unspecified; F32.9 Major depressive disorder, single episode, unspecified; Z68.35 Body mass index [BMI] 35.0-35.9, adult; Z79.82 Long term (current) use of aspirin; Z79.4 Long term (current) use of insulin
CPT/HCPCS: A9270; J1644; J1885; J7030; J7120

== ENCOUNTER → 2016-11-04 | Outpatient (CLI) | payer OTHER ==
[~2016-11-04] MED LIST changes: +LIPITOR20 M1 PO; +RANEXA ER500 MG PO
== END | disposition disaster alternative care site (69) ==
LOC: GAMB 22:42
DX: R07.89 Other chest pain (principal); G89.29 Other chronic pain; R11.2 Nausea with vomiting, unspecified; Z88.2 Allergy status to sulfonamides; Z88.8 Allergy status to other drugs, medicaments and biological substances; Z79.891 Long term (current) use of opiate analgesic; Z79.899 Other long term (current) drug therapy
CPT/HCPCS: A0425; A0427